=== PATIENT | male | born 1955 | race Caucasian/White ===

== ENCOUNTER 2017-12-05 08:59 | Day surgery (SDC) | payer BC ==
[~2017-12-05] VITALS: Ht 195.6 cm; Wt 90.7 kg
--- NOTE | ~2017-12-05 | OR ---
[facility] [address], [place] [address] Draft DATE OF OPERATION: 12/05/2017 SURGEON: Maria Isabel Aguilera MD PREOPERATIVE DIAGNOSIS: Colon screening. POSTOPERATIVE DIAGNOSIS: Normal colon to cecum. PROCEDURE PERFORMED: Total colonoscopy to cecum. ANESTHESIA: Intravenous sedation, fentanyl 150 mcg, and Versed 5 mg. INDICATION: This 61-year-old white man is a patient of Dr. Dueñas. He is here for screening colonoscopy. He is having no bleeding diarrhea or constipation type problems. He has no family history of colon cancer that he is aware of. He has a very unremarkable past medical history also. He understands the risks of bleeding, infection, and perforation related to colonoscopy and wished to proceed. FINDINGS: The prep was excellent. Complete colonoscopy was undertaken of the cecum. There was no sign of polyps, diverticular formation, colitis, or cancer. DESCRIPTION OF PROCEDURE: The patient was brought to the endoscopy suite and placed in lateral decubitus position and given intravenous sedation to the point of slurred speech and nystagmus. Digital rectal examination was normal. An Olympus video colonoscope was passed in the rectum and manipulated throughout the colon, ultimately intubating the cecum itself. The ileocecal valve and appendiceal orifice were normal. The scope was withdrawn from that point. Examination throughout showed no sign of abnormality specifically no polyps, diverticular formation, colitis, or cancer. Retroflex view of the rectum was normal as well. The scope was removed and the patient was taken to recovery in good condition. CONCLUDING DIAGNOSES: PATIENT NAME: MADDY RAPHAEL JR OPERATIVE REPORT DATE OF : 57 REPORT #: [id number] PHYSICIAN: MARIA ISABEL AGUILERA MD PCP: TERRANCE DUEÑAS MD REPORT IS CONFIDENTIAL AND NOT TO BE RELEASED WITHOUT AUTHORIZATION [address], [place] [address] Draft Normal colon. PLAN: Recommend repeat colonoscopy in 10 years, sooner if clinically indicated. He will return to the ongoing care of Dr. Dueñas. MD EVANS Shaw/GUNNAR /[id number] cc: Terrance Dueñas MD Copies: TERRANCE DUEÑAS MD ~ PATIENT NAME: MADDY RAPHAEL JR OPERATIVE REPORT DATE OF : 57 REPORT #: [id number] PHYSICIAN: MARIA ISABEL AGUILERA MD PCP: TERRANCE DUEÑAS MD REPORT IS CONFIDENTIAL AND NOT TO BE RELEASED WITHOUT AUTHORIZATION
[~2017-12-05 08:59] MED LIST: MULTIVITAMINS1 EAC7 PO; VITAMIN C500 M1 PO
--- NOTE | 2017-12-05 10:33 | NUR ---
12/05/17 [facility]3 Chacha Galvez 1026 PT ARRIVED TO PACU DROWSY ON 3L VAIS NC, RESP EVEN AND UNLABORED. PT DENIES NAUSEA AND PAIN. 1028 O2 REMVOED. PT WOKE TO VERBAL STIMULI AND O2 SAT 100%.
== END 2017-12-05 10:57 | disposition home or self-care (01) ==
LOC: DS 08:59 → OPS 08:59 → DS 13:00
PROVIDERS: Surgery
PROC: 0DJD8ZZ Inspection of Lower Intestinal Tract, Via Natural or Artificial Opening Endoscopic (ICD-10-PCS; principal; 2017-12-05 09:30)
DX: Z12.11 Encounter for screening for malignant neoplasm of colon (principal)
CPT/HCPCS: 99153; G0500; J2250; J3010; J7120